=== PATIENT | male | born 1980 ===

== ENCOUNTER 2016-09-15 01:44 | Emergency (ER) | payer SELFPAY ==
[2016-09-15 01:58] VITALS: RESP 20
--- NOTE | 2016-09-15 02:15 | C.PDOC ---
History Of Present Illness 35 year old male brought in to the ER via EMS after being found on the street intoxicated. Denies any physical complaints. Time Seen by Provider: 09/15/16 01:46 Chief Complaint (Nursing): Substance Abuse History Per: Patient History/Exam Limitations: no limitations Onset/Duration Of Symptoms: Hrs Current Symptoms Are (Timing): Still Present Suicide/Self Injury Attempted (Context): None Modifying Factor(s): Alcohol Associated Symptoms: denies: Depression, Suicidal Thoughts, Suicidal Plan Involuntary Hold By: None Recent travel outside of the [place]: No Past Medical History Reviewed: Historical Data, Nursing Documentation, Vital Signs Vital Signs: Last Vital Signs Temp 98.1 F 09/15/16 01:51 Pulse 92 H 09/15/16 01:51 Resp 20 09/15/16 01:51 BP 144/70 09/15/16 01:51 Pulse Ox 98 09/15/16 02:15 - Medical History PMH: No Chronic Diseases Surgical History: No Surg Hx Family History: States: Unknown Family Hx - Social History Hx Alcohol Use: Yes Hx Substance Use: No Review Of Systems Constitutional: Negative for: Fever, Chills Gastrointestinal: Negative for: Nausea, Vomiting, Diarrhea Physical Exam - Physical Exam Appears: Non-toxic, Other (Awake, alert. ETOH on breath.) Skin: Normal Color, Warm, Dry Head: Atraumatic, Normacephalic Oral Mucosa: Moist Chest: Symmetrical, No Tenderness Cardiovascular: Rhythm Regular, No Murmur Respiratory: Normal Breath Sounds, No Rales, No Rhonchi, No Wheezing Gastrointestinal/Abdominal: Soft, No Tenderness Neurological/Psych: Oriented x3, Normal Speech, Normal Cognition Gait: Steady ED Course And Treatment O2 Sat by Pulse Oximetry: 98 (Room air) Pulse Ox Interpretation: Normal Medical Decision Making Medical Decision Making: On reevaluation, patient is alert, awake, and walking with a steady gait; sister is at bedside and will take patient home. Disposition - Disposition Disposition: HOME/ ROUTINE Disposition Time: 02:14 Condition: GOOD Additional Instructions: Return if worsened. Instructions: Alcohol Intoxication (ED) Forms: [facility] (Irish) - Clinical Impression Clinical Impression: Alcohol intoxication - Scribe Statement The provider has reviewed the documentation as recorded by the Scribe Jeffrey Ahumada All medical record entries made by the Scribe were at my direction and personally dictated by me. I have reviewed the chart and agree that the record accurately reflects my personal performance of the history, physical exam, medical decision making, and the department course for this patient. I have also personally directed, reviewed, and agree with the discharge instructions and disposition.
[2016-09-15 02:48] VITALS: BP 140/74; PULSE 90; TEMP 98.2
[2016-09-16 05:24] VITALS: O2SAT 98
== END 2016-09-15 02:46 | disposition home or self-care (01) ==
LOC: C.ER 01:44
DX: F10.129 Alcohol abuse with intoxication, unspecified (principal)